=== PATIENT | male | born 1960 | race Caucasian/White ===

== ENCOUNTER 2019-08-02 14:34 | Emergency (ER) | payer MEDICAID ==
[~2019-08-02] VITALS: Ht 195.6 cm; Wt 109.1 kg
[~2019-08-02 14:34] MED LIST: ASPI-974 PO; BUPR150T6 PO; FINA5TAB11 PO; OMEP-297 PO; RIFA600V4 MT; TAMS0.4C32 PO
[2019-08-02] MEDS ORDERED: NPH,100V SQ (15:00)
[2019-08-02] MEDS ORDERED: INSU100I31 SQ (15:00)
== END 2019-08-02 15:05 | disposition home or self-care (01) ==
LOC: ER 14:34
DX: E11.9 Type 2 diabetes mellitus without complications (principal); Z76.0 Encounter for issue of repeat prescription; F12.90 Cannabis use, unspecified, uncomplicated; K21.9 Gastro-esophageal reflux disease without esophagitis; G89.29 Other chronic pain; Z56.0 Unemployment, unspecified; Z98.890 Other specified postprocedural states; Z79.82 Long term (current) use of aspirin; Z79.4 Long term (current) use of insulin
CPT/HCPCS: 82948; 99283

== ENCOUNTER 2019-08-05 18:07 | Emergency (ER) | payer MEDICAID ==
[~2019-08-05] VITALS: Ht 195.6 cm; Wt 98.0 kg
[~2019-08-05 18:07] MED LIST changes: +INSU100I31 SQ; +NPH,100V SQ
[2019-08-05 18:16] VITALS: BP 134/85
[2019-08-05] MEDS ORDERED: ipratropium/albuterol 3ml nebule NEB ONE (19:15)
[2019-08-05] MEDS ORDERED: AMOX-422 PO (19:53)
== END 2019-08-05 20:09 | disposition home or self-care (01) ==
LOC: ER 18:08
DX: J40 Bronchitis, not specified as acute or chronic (principal); K21.9 Gastro-esophageal reflux disease without esophagitis; G89.29 Other chronic pain; F12.90 Cannabis use, unspecified, uncomplicated; F10.99 Alcohol use, unspecified with unspecified alcohol-induced disorder; Z56.0 Unemployment, unspecified; Z79.82 Long term (current) use of aspirin; Z79.899 Other long term (current) drug therapy; Y90.9 Presence of alcohol in blood, level not specified
CPT/HCPCS: 71045; 94640; 94760; 99283

== ENCOUNTER 2019-08-21 20:24 | Emergency (ER) | payer MEDICAID ==
[~2019-08-21] VITALS: Ht 195.6 cm; Wt 95.0 kg
[~2019-08-21 20:24] MED LIST changes: -OMEP-297 PO; +OMEP20CA15 PO
--- NOTE | 2019-08-21 21:04 | NUR ---
HE IS DRINKING ORANGE JUICE AND JELLO AND HE HAS A SANDWICH TO EAT. HE SAID HE REALLY DIDN'T EAT ANYTHING TODAY DID METH YESTERDAY
[2019-08-21] MEDS ORDERED: dextrose 50%-water 50ml dispensing syringe IV ONE (21:20)
[2019-08-21 21:49] LABS: BASOPHILS % (AUTO) 0.2 % (0-1); EOSINOPHILS # (AUTO) 0.1 X10'3 (0-0.9); EOSINOPHILS % (AUTO) 1.1 % (0-6); HEMATOCRIT 45.2 % (42.0-52.0); HEMOGLOBIN 15.6 g/dl (14.0-17.9); LYMPHOCYTES # (AUTO) 2.1 X10'3 (1.1-4.8); LYMPHOCYTES % (AUTO) 25.6 % (21-51); MEAN CORPUSCULAR HEMOGLOBIN 29.9 PG (27.0-31.0); MEAN CORPUSCULAR HGB CONC 34.5 g/dL (33.0-36.5); MEAN CORPUSCULAR VOLUME 86.6 FL (78-98); MEAN PLATELET VOLUME 9.3 FL (7.4-10.4); MONOCYTES # (AUTO) 0.9 X10'3 (0-0.9); MONOCYTES % (AUTO) 10.5 % (2-12); NEUTROPHILS # (AUTO) 5.1 X10'3 (1.8-7.7); NEUTROPHILS % (AUTO) 62.6 % (42-75); PLATELET COUNT 323 X10'3 (140-440); RED BLOOD COUNT 5.21 X10'6 (4.70-6.10); RED CELL DISTRIBUTION WIDTH 14.3 % (11.5-14.5); WHITE BLOOD COUNT 8.1 X10'3 (4.5-11.0)
[2019-08-21 22:17] LABS: ALANINE AMINOTRANSFERASE 37 U/L (12-78); ALBUMIN 3.8 G/DL (3.4-5.0); ALKALINE PHOSPHATASE 90 IU/L (46-116); ANION GAP 7 (8-16); ASPARTATE AMINO TRANSFERASE 31 U/L (10-37); BILIRUBIN,TOTAL 0.4 MG/DL (0.1-1.0); BLOOD UREA NITROGEN 12 MG/DL (7-18); BUN/CREATININE RATIO 14.3 (5.4-32.0); CALCIUM 9.2 MG/DL (8.5-10.1); CHLORIDE 104 MMOL/L (99-107); CREATININE 0.84 MG/DL (0.60-1.10); ETHANOL < 0.010 GM/DL (0.0-0.010); SODIUM 142 MMOL/L (135-145); TOTAL CARBON DIOXIDE 30.8 MMOL/L (24-32); TOTAL PROTEIN 7.8 G/DL (6.4-8.2); eGFR > 90 ML/MIN
[2019-08-21 22:44] LABS: GLUCOSE 43 MG/DL (70-104)
[2019-08-21] MEDS ORDERED: [UNRECOGNIZED DRUG - CODE] (23:38)
[2019-08-21] MEDS ORDERED: INSU100V30 SQ (23:38)
[2019-08-21 23:53] VITALS: BP 141/78
== END 2019-08-21 23:54 | disposition home or self-care (01) ==
LOC: ER 20:26
DX: E11.65 Type 2 diabetes mellitus with hyperglycemia (principal); K21.9 Gastro-esophageal reflux disease without esophagitis; G89.29 Other chronic pain; F12.90 Cannabis use, unspecified, uncomplicated; F15.90 Other stimulant use, unspecified, uncomplicated; F10.99 Alcohol use, unspecified with unspecified alcohol-induced disorder; Z56.0 Unemployment, unspecified; Z98.890 Other specified postprocedural states; Z79.82 Long term (current) use of aspirin; Z79.4 Long term (current) use of insulin; Z79.899 Other long term (current) drug therapy; Y90.9 Presence of alcohol in blood, level not specified
CPT/HCPCS: 36415; 80053; 80320; 82948; 85025; 96374; 99283